=== PATIENT | female | born 2000 | race Caucasian/White ===

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

== ENCOUNTER 2022-12-29 00:46 | Emergency (ER) | payer MEDICAID, OTHER ==
[2022-12-29 01:10] VITALS: BP 126/81; PULSE 85
[2022-12-29] MEDS ORDERED: Sodium Chloride 0.9% 10 ML Syringe FLUSH PRN ×2 (01:38→02:00)
[2022-12-29] MEDS ORDERED: Sodium Chloride 0.9% 1,000 ML IV STA (01:38)
[2022-12-29 01:55] LABS: BASOPHILS ABSOLUTE AUTO 0.05 K/uL (0.00-0.10); BASOPHILS PERCENT AUTO 0.8 % (0.1-1.3); EOSINOPHILS ABSOLUTE AUTO 0.16 K/uL (0.00-0.40); EOSINOPHILS PERCENT AUTO 2.5 % (0.0-5.4); HEMATOCRIT 39.7 % (34.3-46.0); HEMOGLOBIN 13.6 g/dL (11.2-15.5); IMMATURE GRAN PERCENT AUTO 0.3 % (0.0-0.7); LYMPHOCYTES ABSOLUTE AUTO 2.04 K/uL (0.8-3.3); MEAN CORPUSCULAR HEMOGLOBIN 29.6 pg (31.6-35.5); MEAN CORPUSCULAR HGB CONC 34.3 g/dL (31.6-35.5); MEAN CORPUSCULAR VOLUME 86.3 fL (81.4-99.0); MONOCYTES ABSOLUTE AUTO 0.44 K/uL (0.20-0.90); MONOCYTES PERCENT AUTO 6.9 % (3.3-12.6); NEUTROPHILS ABSOLUTE AUTO 3.66 K/uL (1.0-7.6); NEUTROPHILS PERCENT AUTO 57.5 % (40.0-78.1); PLATELET COUNT,PLT 191 K/uL (130-375); WHITE BLOOD CELL COUNT,WBC 6.4 K/uL (3.2-11.0)
[2022-12-29] MEDS ORDERED: Sodium Chloride 0.9% 50 ML IV ONE (02:00)
[2022-12-29] MEDS ORDERED: Iopamidol 612 MG/ML 100 ML Bottle IV PRN (02:00)
[2022-12-29 02:02] LABS: IMMATURE GRAN ABSOLUTE AUTO 0.02 K/uL (0.00-0.23)
[2022-12-29 02:14] LABS: ALANINE AMINOTRANSFERASE,ALT 17 U/L (12-78); ALBUMIN 3.5 g/dL (3.4-5.0); ALKALINE PHOSPHATASE 68 U/L (46-116); ASPARTATE AMNIOTRANSFERASE,AST 17 U/L (15-37); BILIRUBIN TOTAL 0.4 mg/dL (0.2-1.0); BLOOD UREA NITROGEN,BUN 15 mg/dL (7-18); CALCIUM 8.6 mg/dL (8.5-10.1); CARBON DIOXIDE,CO2 28 mmol/L (21-32); CHLORIDE,CL 104 mmol/L (100-108); CREATININE 0.7 mg/dL (0.6-1.0); EST CRCL DRUG DOSING (CG) 119.01 mL/min; ESTIMATED GFR 126 mL/min (>60); GLUCOSE RANDOM 92 mg/dL (74-106); LIPASE 98 U/L (73-393); POTASSIUM,K 3.6 mmol/L (3.6-5.2); PROTEIN TOTAL,TP 7.2 g/dL (6.4-8.2); SODIUM,NA 139 mmol/L (140-148)
[2022-12-29 02:17] LABS: ANION GAP 10.6 mmol/L (5.0-14.0)
== END 2022-12-29 03:16 | disposition home or self-care (01) ==
LOC: JP.ED 00:46
DX: K59.04 Chronic idiopathic constipation (principal); J45.909 Unspecified asthma, uncomplicated; Z88.0 Allergy status to penicillin; Z88.2 Allergy status to sulfonamides
CPT/HCPCS: 36415; 74177; 80053; 83605; 83690; 84703; 85025; 99284; J3490; Q9967

== ENCOUNTER 2023-04-12 14:54 | Emergency (ER) | payer BC, MEDICAID, OTHER ==
[2023-04-12 15:14] VITALS: BP 154/85; PULSE 105
[2023-04-12] MEDS ORDERED: Simethicone 125 MG Tab.Chew PO ONE (17:21)
[2023-04-12] MEDS ORDERED: Magnesium Citrate Solution 296 ML Bottle PO ONE (17:24)
[2023-04-12 17:37] LABS: BASOPHILS ABSOLUTE AUTO 0.05 K/uL (0.00-0.10); BASOPHILS PERCENT AUTO 0.6 % (0.1-1.3); EOSINOPHILS ABSOLUTE AUTO 0.03 K/uL (0.00-0.40); EOSINOPHILS PERCENT AUTO 0.4 % (0.0-5.4); HEMATOCRIT 40.6 % (34.3-46.0); HEMOGLOBIN 14.2 g/dL (11.2-15.5); IMMATURE GRAN PERCENT AUTO 0.1 % (0.0-0.7); LYMPHOCYTES PERCENT AUTO 17.9 % (11.4-47.7); MEAN CORPUSCULAR HEMOGLOBIN 29.6 pg (31.6-35.5); MEAN CORPUSCULAR VOLUME 84.8 fL (81.4-99.0); MONOCYTES ABSOLUTE AUTO 0.48 K/uL (0.20-0.90); MONOCYTES PERCENT AUTO 5.7 % (3.3-12.6); NEUTROPHILS ABSOLUTE AUTO 6.32 K/uL (1.0-7.6); NEUTROPHILS PERCENT AUTO 75.3 % (40.0-78.1); PLATELET COUNT,PLT 242 K/uL (130-375); RED BLOOD CELL COUNT 4.79 M/uL (3.77-5.24); WHITE BLOOD CELL COUNT,WBC 8.4 K/uL (3.2-11.0)
[2023-04-12 17:39] LABS: IMMATURE GRAN ABSOLUTE AUTO 0.01 K/uL (0.00-0.23)
[2023-04-12 17:51] LABS: CALCIUM 9.1 mg/dL (8.5-10.1); CREATININE 0.9 mg/dL (0.6-1.0); EST CRCL DRUG DOSING (CG) 91.17 mL/min; POTASSIUM,K 3.6 mmol/L (3.6-5.2)
[2023-04-12 17:59] LABS: ANION GAP 14.6 mmol/L (5.0-14.0)
== END 2023-04-12 18:29 | disposition home or self-care (01) ==
LOC: JP.ED 14:54
DX: K59.00 Constipation, unspecified (principal); Z88.0 Allergy status to penicillin; Z88.2 Allergy status to sulfonamides
CPT/HCPCS: 36415; 80048; 81025; 83605; 85025; 99284; A9270

== ENCOUNTER 2023-05-09 04:32 | Emergency (ER) | payer BC ==
[2023-05-09 04:41] VITALS: BP 152/87; PULSE 109
[2023-05-09] MEDS ORDERED: Albuterol/Ipratropium 3.0-0.5 MG/3 ML Neb Soln NEB ONE (05:02)
[2023-05-09 05:12] LABS: BASOPHILS ABSOLUTE AUTO 0.04 K/uL (0.00-0.10); EOSINOPHILS ABSOLUTE AUTO 0.19 K/uL (0.00-0.40); HEMATOCRIT 38.6 % (34.3-46.0); HEMOGLOBIN 13.4 g/dL (11.2-15.5); LYMPHOCYTES ABSOLUTE AUTO 1.89 K/uL (0.8-3.3); LYMPHOCYTES PERCENT AUTO 49.6 % (11.4-47.7); MEAN CORPUSCULAR HEMOGLOBIN 29.8 pg (31.6-35.5); MEAN CORPUSCULAR HGB CONC 34.7 g/dL (31.6-35.5); MEAN CORPUSCULAR VOLUME 85.8 fL (81.4-99.0); MONOCYTES ABSOLUTE AUTO 0.32 K/uL (0.20-0.90); MONOCYTES PERCENT AUTO 8.4 % (3.3-12.6); NEUTROPHILS ABSOLUTE AUTO 1.37 K/uL (1.0-7.6); PLATELET COUNT,PLT 189 K/uL (130-375); WHITE BLOOD CELL COUNT,WBC 3.8 K/uL (3.2-11.0)
[2023-05-09 05:26] LABS: CALCIUM 8.6 mg/dL (8.5-10.1); CREATININE 0.7 mg/dL (0.6-1.0); EST CRCL DRUG DOSING (CG) 113.74 mL/min
[2023-05-09 05:56] LABS: CORONAVIRUS COVID-19 NAA NEGATIVE (NEGATIVE); INFLUENZA A NAA NEGATIVE (NEGATIVE); INFLUENZA B NAA NEGATIVE (NEGATIVE); RESPIRATORY SYNCYTIAL VIR NAA NEGATIVE (NEGATIVE)
== END 2023-05-09 06:18 | disposition home or self-care (01) ==
LOC: JP.ED 04:32
DX: J45.909 Unspecified asthma, uncomplicated (principal); Z20.822 Contact with and (suspected) exposure to COVID-19; Z88.0 Allergy status to penicillin; Z88.2 Allergy status to sulfonamides
CPT/HCPCS: 0241U; 36415; 71046; 80048; 83605; 85025; 94640; 99285; J7620

== ENCOUNTER 2023-07-18 20:50 | Emergency (ER) | payer BC ==
[2023-07-18 21:17] VITALS: BP 147/86
[2023-07-18] MEDS ORDERED: Albuterol/Ipratropium 3.0-0.5 MG/3 ML Neb Soln NEB ONE (21:54)
[2023-07-18 22:12] VITALS: PULSE 89
== END 2023-07-18 23:05 | disposition home or self-care (01) ==
LOC: JP.ED 20:50
DX: R07.9 Chest pain, unspecified (principal); J45.909 Unspecified asthma, uncomplicated; Z88.0 Allergy status to penicillin; Z88.2 Allergy status to sulfonamides
CPT/HCPCS: 94640; 99284; J7620

== ENCOUNTER 2023-09-09 09:55 | Emergency (ER) | payer BC ==
[2023-09-09 10:17] VITALS: BP 131/75; PULSE 88
[2023-09-09 11:03] LABS: BASOPHILS ABSOLUTE AUTO 0.04 K/uL (0.00-0.10); BASOPHILS PERCENT AUTO 0.9 % (0.1-1.3); EOSINOPHILS ABSOLUTE AUTO 0.09 K/uL (0.00-0.40); HEMATOCRIT 38.2 % (34.3-46.0); HEMOGLOBIN 13.2 g/dL (11.2-15.5); IMMATURE GRAN PERCENT AUTO 0.2 % (0.0-0.7); LYMPHOCYTES ABSOLUTE AUTO 1.47 K/uL (0.8-3.3); LYMPHOCYTES PERCENT AUTO 33.3 % (11.4-47.7); MEAN CORPUSCULAR HEMOGLOBIN 29.7 pg (31.6-35.5); MEAN CORPUSCULAR HGB CONC 34.6 g/dL (31.6-35.5); MEAN CORPUSCULAR VOLUME 85.8 fL (81.4-99.0); MONOCYTES PERCENT AUTO 9.1 % (3.3-12.6); NEUTROPHILS PERCENT AUTO 54.5 % (40.0-78.1); PLATELET COUNT,PLT 175 K/uL (130-375); RED BLOOD CELL COUNT 4.45 M/uL (3.77-5.24); WHITE BLOOD CELL COUNT,WBC 4.4 K/uL (3.2-11.0)
[2023-09-09 11:04] LABS: IMMATURE GRAN ABSOLUTE AUTO 0.01 K/uL (0.00-0.23)
[2023-09-09 11:25] LABS: ALANINE AMINOTRANSFERASE,ALT 19 U/L (12-78); ALBUMIN 3.6 g/dL (3.4-5.0); ALKALINE PHOSPHATASE 62 U/L (46-116); ASPARTATE AMNIOTRANSFERASE,AST 14 U/L (15-37); BILIRUBIN TOTAL 0.3 mg/dL (0.2-1.0); BLOOD UREA NITROGEN,BUN 16 mg/dL (7-18); CALCIUM 8.8 mg/dL (8.5-10.1); CARBON DIOXIDE,CO2 30 mmol/L (21-32); CHLORIDE,CL 103 mmol/L (100-108); CREATININE 0.8 mg/dL (0.6-1.0); EST CRCL DRUG DOSING (CG) 98.73 mL/min; ESTIMATED GFR 107 mL/min (>60); GLUCOSE RANDOM 80 mg/dL (74-106); MAGNESIUM 1.9 mg/dL (1.8-2.4); PHOSPHORUS 2.7 mg/dL (2.5-4.9); POTASSIUM,K 3.6 mmol/L (3.6-5.2); PROTEIN TOTAL,TP 7.4 g/dL (6.4-8.2); SODIUM,NA 138 mmol/L (140-148)
[2023-09-09 11:29] LABS: ANION GAP 8.6 mmol/L (5.0-14.0)
== END 2023-09-09 12:29 | disposition home or self-care (01) ==
LOC: JP.ED 09:55
DX: M62.81 Muscle weakness (generalized) (principal); J45.909 Unspecified asthma, uncomplicated; K21.9 Gastro-esophageal reflux disease without esophagitis; Z88.0 Allergy status to penicillin; Z88.2 Allergy status to sulfonamides
CPT/HCPCS: 36415; 80053; 82550; 83735; 84100; 84703; 85025; 99284

== ENCOUNTER 2023-10-08 14:33 | Emergency (ER) | payer BC ==
[2023-10-08] MEDS ORDERED: hydrALAZINE 20 MG/ML SDV IVPUSH ONE (15:15)
[2023-10-08 15:51] LABS: BASOPHILS ABSOLUTE AUTO 0.06 K/uL (0.00-0.10); BASOPHILS PERCENT AUTO 1.1 % (0.1-1.3); EOSINOPHILS ABSOLUTE AUTO 0.06 K/uL (0.00-0.40); EOSINOPHILS PERCENT AUTO 1.1 % (0.0-5.4); HEMATOCRIT 39.7 % (34.3-46.0); HEMOGLOBIN 13.6 g/dL (11.2-15.5); IMMATURE GRAN ABSOLUTE AUTO 0.02 K/uL (0.00-0.23); IMMATURE GRAN PERCENT AUTO 0.4 % (0.0-0.7); LYMPHOCYTES ABSOLUTE AUTO 1.43 K/uL (0.8-3.3); LYMPHOCYTES PERCENT AUTO 25.1 % (11.4-47.7); MEAN CORPUSCULAR HEMOGLOBIN 29.3 pg (31.6-35.5); MEAN CORPUSCULAR HGB CONC 34.3 g/dL (31.6-35.5); MEAN CORPUSCULAR VOLUME 85.6 fL (81.4-99.0); MONOCYTES ABSOLUTE AUTO 0.41 K/uL (0.20-0.90); MONOCYTES PERCENT AUTO 7.2 % (3.3-12.6); NEUTROPHILS ABSOLUTE AUTO 3.71 K/uL (1.0-7.6); NEUTROPHILS PERCENT AUTO 65.1 % (40.0-78.1); PLATELET COUNT,PLT 228 K/uL (130-375); RED BLOOD CELL COUNT 4.64 M/uL (3.77-5.24); WHITE BLOOD CELL COUNT,WBC 5.7 K/uL (3.2-11.0)
[2023-10-08] MEDS: LORazepam 2 MG/ML SDV IM PRN (16:01)
[2023-10-08 16:06] LABS: ANION GAP 9.6 mmol/L (5.0-14.0); CALCIUM 9.6 mg/dL (8.5-10.1); CREATININE 0.9 mg/dL (0.6-1.0); EST CRCL DRUG DOSING (CG) 86.36 mL/min; POTASSIUM,K 4.1 mmol/L (3.6-5.2)
[2023-10-08 16:17] LABS: APPEARANCE,URINE SLIGHTLY CLOUDY (CLEAR); BILIRUBIN,URINE NEGATIVE (NEGATIVE); COLOR,URINE YELLOW (YELLOW); GLUCOSE,URINE NEGATIVE (NEGATIVE); KETONES,URINE NEGATIVE (NEGATIVE); LEUKOCYTE ESTERASE,URINE NEGATIVE (NEGATIVE); NITRITE,URINE NEGATIVE (NEGATIVE); OCCULT BLOOD,URINE NEGATIVE (NEGATIVE); PH,URINE 6.5 (5.0-8.0); PROTEIN,URINE NEGATIVE (NEGATIVE); UROBILINOGEN,URINE 0.2 EU/dL (0.2-1.0)
[2023-10-08 16:23] LABS: AMORPHOUS SEDIMENT,URINE NOT SEEN; BACTERIA,URINE MODERATE; EPITHELIAL CELLS,URINE FEW; MUCUS,URINE FEW; RBC,URINE 0-5 (0-5); WBC,URINE 0-5 (0-5)
[2023-10-08 17:45] VITALS: BP 105/63; PULSE 82
== END 2023-10-08 17:51 | disposition home or self-care (01) ==
LOC: JP.ED 14:33
DX: R56.9 Unspecified convulsions (principal); J45.909 Unspecified asthma, uncomplicated; Z88.0 Allergy status to penicillin; Z88.2 Allergy status to sulfonamides; Z79.899 Other long term (current) drug therapy; Z86.16 Personal history of COVID-19
CPT/HCPCS: 36415; 80048; 81001; 83605; 85025; 96372; 99284; J2060

== ENCOUNTER 2023-10-26 00:43 | Emergency (ER) | payer BC ==
[2023-10-26 00:51] VITALS: BP 131/87; PULSE 79
[2023-10-26] MEDS: LORazepam 1 MG Tab PO ONE (01:15)
== END 2023-10-26 02:08 | disposition home or self-care (01) ==
LOC: JP.ED 00:43
DX: M62.838 Other muscle spasm (principal); Z86.69 Personal history of other diseases of the nervous system and sense organs; Z88.2 Allergy status to sulfonamides; Z88.0 Allergy status to penicillin; Z79.51 Long term (current) use of inhaled steroids; Z79.899 Other long term (current) drug therapy; Z86.16 Personal history of COVID-19
CPT/HCPCS: 72040; 72070; 81025; 99283; A9270

== ENCOUNTER 2023-11-01 00:05 | Emergency (ER) | payer BC, MEDICAID ==
[2023-11-01 00:46] LABS: A/G RATIO 1.2 (1.2-2.2); ALANINE AMINOTRANSFERASE,ALT 22 U/L (12-78); ALBUMIN 4.6 g/dL (3.4-5.0); ALKALINE PHOSPHATASE 67 U/L (46-116); ASPARTATE AMNIOTRANSFERASE,AST 21 U/L (15-37); BILIRUBIN TOTAL 0.3 mg/dL (0.2-1.0); BLOOD UREA NITROGEN,BUN 17 mg/dL (7-18); CALCIUM 9.1 mg/dL (8.5-10.1); CARBON DIOXIDE,CO2 23 mmol/L (21-32); CHLORIDE,CL 104 mmol/L (100-108); CREATININE 0.8 mg/dL (0.6-1.0); EST CRCL DRUG DOSING (CG) 97.15 mL/min; ESTIMATED GFR 107 mL/min (>60); GLUCOSE RANDOM 87 mg/dL (74-106); POTASSIUM,K 4.4 mmol/L (3.6-5.2); PROTEIN TOTAL,TP 8.4 g/dL (6.4-8.2); SODIUM,NA 139 mmol/L (140-148)
[2023-11-01 00:47] LABS: BASOPHILS ABSOLUTE AUTO 0.07 K/uL (0.00-0.10); BASOPHILS PERCENT AUTO 0.9 % (0.1-1.3); EOSINOPHILS ABSOLUTE AUTO 0.19 K/uL (0.00-0.40); EOSINOPHILS PERCENT AUTO 2.3 % (0.0-5.4); HEMATOCRIT 42.4 % (34.3-46.0); HEMOGLOBIN 14.9 g/dL (11.2-15.5); IMMATURE GRAN ABSOLUTE AUTO 0.01 K/uL (0.00-0.23); IMMATURE GRAN PERCENT AUTO 0.1 % (0.0-0.7); LYMPHOCYTES ABSOLUTE AUTO 3.64 K/uL (0.8-3.3); LYMPHOCYTES PERCENT AUTO 44.6 % (11.4-47.7); MEAN CORPUSCULAR HEMOGLOBIN 30.2 pg (31.6-35.5); MEAN CORPUSCULAR HGB CONC 35.1 g/dL (31.6-35.5); MEAN CORPUSCULAR VOLUME 85.8 fL (81.4-99.0); MONOCYTES ABSOLUTE AUTO 0.47 K/uL (0.20-0.90); MONOCYTES PERCENT AUTO 5.8 % (3.3-12.6); NEUTROPHILS ABSOLUTE AUTO 3.79 K/uL (1.0-7.6); NEUTROPHILS PERCENT AUTO 46.3 % (40.0-78.1); PLATELET COUNT,PLT 204 K/uL (130-375); RED BLOOD CELL COUNT 4.94 M/uL (3.77-5.24); WHITE BLOOD CELL COUNT,WBC 8.2 K/uL (3.2-11.0)
[2023-11-01 00:48] LABS: ANION GAP 16.4 mmol/L (5.0-14.0)
[2023-11-01] MEDS: LORazepam 2 MG/ML SDV IVPUSH ONE (00:55)
[2023-11-01] MEDS: Sodium Chloride 0.9% 1,000 ML IV ONE (01:18)
[2023-11-01 01:36] LABS: APPEARANCE,URINE CLEAR (CLEAR); BILIRUBIN,URINE NEGATIVE (NEGATIVE); COLOR,URINE YELLOW (YELLOW); GLUCOSE,URINE NEGATIVE (NEGATIVE); KETONES,URINE NEGATIVE (NEGATIVE); LEUKOCYTE ESTERASE,URINE NEGATIVE (NEGATIVE); NITRITE,URINE NEGATIVE (NEGATIVE); OCCULT BLOOD,URINE NEGATIVE (NEGATIVE); PROTEIN,URINE NEGATIVE (NEGATIVE); UROBILINOGEN,URINE 0.2 EU/dL (0.2-1.0)
[2023-11-01 01:46] LABS: AMPHETAMINES SCREEN, URINE NEGATIVE (NEGATIVE); BARBITURATE SCREEN,URINE NEGATIVE (NEGATIVE); BENZODIAZEPINES SCREEN,URINE NEGATIVE (NEGATIVE); METHADONE SCREEN, URINE NEGATIVE (NEGATIVE); METHAMPHETAMINES SCREEN, URINE NEGATIVE (NEGATIVE); OXYCODONE SCREEN,URINE NEGATIVE (NEGATIVE); PROPOXYPHENE SCREEN,URINE NEGATIVE (NEGATIVE); THC SCREEN,URINE 50 NG/ML NEGATIVE (NEGATIVE)
[2023-11-01 01:52] LABS: AMORPHOUS SEDIMENT,URINE NOT SEEN; BACTERIA,URINE RARE; EPITHELIAL CELLS,URINE RARE; MUCUS,URINE NOT SEEN; RBC,URINE 0-5 (0-5); WBC,URINE 0-5 (0-5)
[2023-11-01 04:02] VITALS: BP 99/44; PULSE 83
[2023-11-01] MEDS ORDERED: levETIRAcetam in NaCl (iso-os) 1,500 MG in Premix Bag 100 BAG IV ONE (04:22)
[2023-11-01] MEDS: levETIRAcetam in NaCl (iso-os) 1,500 MG in Premix Bag 1 BAG IV ONE (04:47)
[2023-11-01] MEDS: Topiramate 25 MG Tab PO ONE (05:24)
== END 2023-11-01 05:42 | disposition home or self-care (01) ==
LOC: JP.ED 00:05
DX: R56.9 Unspecified convulsions (principal); J45.909 Unspecified asthma, uncomplicated; Z88.0 Allergy status to penicillin; Z88.2 Allergy status to sulfonamides; Z88.8 Allergy status to other drugs, medicaments and biological substances; Z86.16 Personal history of COVID-19; Z79.899 Other long term (current) drug therapy
CPT/HCPCS: 36415; 80053; 80305; 81001; 81025; 85025; 96361; 96374; 96375; 99284; J1953; J2060; J7030